=== PATIENT | female | born 1990 | race Caucasian/White ===

== ENCOUNTER 2019-05-14 14:12 | Emergency (ER) | payer OTHER, SELFPAY ==
--- NOTE | 2019-05-14 14:25 | ED.GENADULT ---
HPI - General Adult General Chief complaint: Upper Respiratory Infection Stated complaint: FEVER/COUGH/CHEST PAIN/SORE THROAT Time Seen by Provider: 05/14/19 14:39 Source: patient Mode of arrival: ambulatory Limitations: no limitations History of Present Illness HPI narrative: 29-year-old female patient presents to the [facility] with complaints of cold symptoms that started this morning. Patient states she was running low-grade fevers as high as 99. Patient states she just had some mild body aches, congestion and runny nose. Patient denies getting a flu shot. Patient denies any or breast-feeding at this time. Patient states that her daughter was diagnosed with influenza B a couple weeks ago. Patient states that she has taken some ibuprofen for her symptoms. Related Data Allergies Allergy/AdvReac Type Severity Reaction Status Date / Time No Known Allergies Allergy Unverified 10/02/18 10:38 Review of Systems Review of Systems: Narrative: CONSTITUTIONAL: Positive subjective low-grade fever, body aches, chills, denies sweats. EYES: Denies visual changes, redness, or discharge. ENT: Positive rhinorrhea, congestion, positive sore throat, denies otalgia. CARDIOVASCULAR: Denies chest pain, palpitations, or edema. RESPIRATORY: Denies cough or dyspnea. GASTROINTESTINAL: Denies abdominal pain, nausea, vomiting, or diarrhea. GENITOURINARY: Denies dysuria or hematuria. SKIN: Denies rash or itching. MUSCULOSKELETAL: Denies back pain, joint pain, or myalgia. NEUROLOGIC: Positive headache, denies numbness, or weakness. PSYCHIATRIC: Denies anxiety or depression. PMFSH Comments At the time of my signature I agree with nursing past medical history, surgical, social, and family history. There is no relevant family history pertinent to the presenting complaint. Exam Narrative: Exam Narrative: GENERAL: Well-appearing, well-nourished, and in no acute distress. HEAD: Normocephalic, atraumatic. No tenderness noted to frontal and maxillary sinuses on palpation EYES: PERRLA and EOMI. ENT: Nares with erythema and edema noted bilaterally, no rhinorrhea or epistaxis. Mucous membranes moist. Posterior pharynx with no erythema, tonsillar margin, exudates or lesions present. Bilateral TMs are clear with no erythema or foreign bodies in the canal. NECK: Supple. No lymphadenopathy CHEST: Clear to auscultation. No respiratory distress. HEART: Regular rate and rhythm. No murmur heard. Normal peripheral pulses. ABDOMEN: Soft, nontender, nondistended, normal active bowel sounds. EXTREMITIES: Normal range of motion. No edema. SKIN: Warm, dry, no rash. NEURO: No focal deficits. Alert and oriented x3. Course Vital Signs Vital signs: Vital Signs Temperature 36.9 C 05/14/19 14:26 Pulse Rate 90 05/14/19 14: Respiratory Rate 16 05/14/19 14: Blood Pressure 101/72 05/14/19 14:26 Pulse Oximetry 100 05/14/19 14:26 Temperature 36.9 C 05/14/19 14: Pulse Rate 90 05/14/19 14:26 Respiratory Rate 16 05/14/19 14: Blood Pressure 101/72 05/14/19 14:26 Pulse Oximetry 100 05/14/19 14:26 Vital signs reviewed. Medical Decision Making Differential Diagnosis Differential Diagnosis: Differential diagnosis: Allergic rhinitis, chronic sinusitis, tonsillitis, acute sinusitis, infectious mononucleosis, seasonal influenza, pertussis, diphtheria, meningococcal disease, viral syndrome, viral bronchitis, RSV. Notify patient that she is negative today for influenza and strep. Discussed with her this is probably some type of virus and I would continue to encourage her to take Tylenol, ibuprofen, warm salt water gargles, hot tea and honey and a humidifier in her room at night for symptomatic relief. Discussed with patient I will write her off of work tomorrow and she can go back to work when she has been fever free for 24 hours. Patient verbalized understanding denies any other questions or concerns at this time. Vital Signs
[2019-05-14 14:26] VITALS: BP 101/72; PULSE 90; RESP 16; TEMP 36.9; O2SAT 100
== END 2019-05-14 14:53 | disposition home or self-care (01) ==
PROVIDERS: Emergency Provider Nurse Practitioner Family
DX: J06.9 Acute upper respiratory infection, unspecified (principal)
CPT/HCPCS: 87081; 87804; 87880; 99213; G0463

== ENCOUNTER 2020-01-24 11:36 | Emergency (ER) | payer BC, OTHER, SELFPAY ==
--- NOTE | 2020-01-24 11:38 | ED.GENADULT ---
HPI - General Adult General Chief complaint: Upper Respiratory Infection Stated complaint: SORE THROAT Time Seen by Provider: 01/24/20 11:38 Source: patient Mode of arrival: ambulatory Limitations: no limitations History of Present Illness HPI narrative: 29-year-old female patient presents to the [facility] with complaints of a sore throat that started yesterday. Patient states she has also had a little bit of discomfort to the right ear. Patient denies any fevers, body aches or chills. Denies any runny nose, stuffy nose, sneezing or coughing. Patient denies any chronic issues with strep throat thinks that she might of had but maybe once other time when she was younger. Patient states that she has been doing warm salt water gargles for treatment but denies taking any medications for her symptoms Related Data Allergies Allergy/AdvReac Type Severity Reaction Status Date / Time No Known Allergies Allergy Unverified 01/24/20 11:51 Review of Systems Review of Systems: Narrative: CONSTITUTIONAL: Denies fever, chills, or sweats. EYES: Denies visual changes, redness, or discharge. ENT: Denies rhinorrhea, congestion, positive sore throat, positive right otalgia. CARDIOVASCULAR: Denies chest pain, palpitations, or edema. RESPIRATORY: Denies cough or dyspnea. GASTROINTESTINAL: Denies abdominal pain, nausea, vomiting, or diarrhea. GENITOURINARY: Denies dysuria or hematuria. SKIN: Denies rash or itching. MUSCULOSKELETAL: Denies back pain, joint pain, or myalgia. NEUROLOGIC: Denies headache, numbness, or weakness. PSYCHIATRIC: Denies anxiety or depression. PMFSH Past Medical History Medical History (Updated 01/24/20 @ 12:08 by MADHU Ferrer) Anxiety Endometriosis Surgical History Surgical History (Updated 01/24/20 @ 11:39 by MADHU Ferrer) History of appendectomy History of ear surgery X2 Comments At the time of my signature I agree with nursing past medical history, surgical, social, and family history. There is no relevant family history pertinent to the presenting complaint. Exam Narrative: Exam Narrative: GENERAL: Well-appearing, well-nourished, and in no acute distress. HEAD: Normocephalic, atraumatic. No tenderness noted to frontal and maxillary sinuses on palpation EYES: PERRLA and EOMI. ENT: Nares clear, no rhinorrhea or epistaxis. Mucous membranes moist. Posterior pharynx with 1+ tonsil enlargement with some exudates noted to the right side. The TM on the right side does appear slightly pink little bit of fluid noted behind there. NECK: Supple. No lymphadenopathy CHEST: Clear to auscultation. No respiratory distress. Patient able talk in clear complete sentences. HEART: Regular rate and rhythm. No murmur heard. Normal peripheral pulses. ABDOMEN: Soft, nontender, nondistended, normal active bowel sounds. EXTREMITIES: Normal range of motion. No edema. SKIN: Warm, dry, no rash. NEURO: No focal deficits. Alert and oriented x3. Course Reevaluation(s) Reevaluation #1: Reevaluated patient after her strep test is resulted. Discussed with her that her strep test is positive today. Discussed with patient we will discharge her home with some antibiotics discussed with her that she is considered contagious for the first 24 to 48 hours after that she should be okay to return to normal activities. Discussed with her she can continue the warm salt water gargles, Tylenol, ibuprofen for any pain. Patient verbalized understanding denies any other questions or concerns at this time. Date: 01/24/20 Time: 12:11 Vital Signs Vital signs: Vital Signs Temperature 36.7 C 01/24/20 11:51 Pulse Rate 67 01/24/20 11:51 Respiratory Rate 16 01/24/20 11:51 Blood Pressure 97/60 L 01/24/20 11:51 Pulse Oximetry 98 01/24/20 11:51 Temperature 36.7 C 01/24/20 11:51 Pulse Rate 67 01/24/20 11:51 Respiratory Rate 16 01/24/20 11:51 Blood Pressure 97/60 L 01/24/20 11:51 Pulse Oximetry 98 01/24/20
[2020-01-24 11:51] VITALS: BP 97/60; PULSE 67; RESP 16; TEMP 36.7; O2SAT 98
== END 2020-01-24 12:18 | disposition home or self-care (01) ==
PROVIDERS: Emergency Provider Nurse Practitioner Family
DX: J02.0 Streptococcal pharyngitis (principal); N80.9 Endometriosis, unspecified
CPT/HCPCS: 87880; 99213; G0463

== ENCOUNTER 2020-01-29 06:54 | Outpatient (NON) | payer BC, OTHER, SELFPAY ==
[2020-01-29 15:10] LABS: Influenza Control Positive
== END 2020-01-29 06:55 ==
LOC: ANHCOVIDDT 07:10
PROVIDERS: Visit Provider Nurse Practitioner
DX: R53.83 Other fatigue (principal); R05 Cough
CPT/HCPCS: 87804

== ENCOUNTER 2020-01-29 11:25 | Outpatient (NON) | payer BC, OTHER, SELFPAY ==
[2020-01-30 14:52] LABS: SARS-CoV-2 RNA PCR Negative
== END 2020-01-29 11:26 ==
LOC: ANHCOVIDDT 11:28
PROVIDERS: Visit Provider Nurse Practitioner
DX: R05 Cough (principal); R53.83 Other fatigue; Z20.828 Contact with and (suspected) exposure to other viral communicable diseases
CPT/HCPCS: 87635; C9803; U0003

== ENCOUNTER 2020-11-11 15:52 | Emergency (ER) | payer BC, OTHER, SELFPAY ==
--- NOTE | ~2020-11-11 | US_ITS ---
US OB <=14 wk fetus w TV DATE: 11/11/2020 17:01 INDICATION: Vaginal bleeding and cramping TECHNIQUE: Real-time imaging and Doppler analysis via transabdominal and transvaginal approaches COMPARISON: None FINDINGS: Uterus is retroverted. The uterus measures 8.8 cm height, 5.8 cm anteroposterior and 5.9 cm transverse dimension. There is an intrauterine gestational sac. Wooster-rump length measurement is 4.2 mm, consistent with 6 weeks 1 day +/- 4 days estimated gestation al age with JOSSE of 07/06/2021, compared to 06/28/2021 by LMP. No heart motion is detected. demise is a strong likelihood. There is a small sonolucency subjacent to the gestational sac consistent with mild subchorionic hemor rhage. 12 x 15.5 mm right ovarian cyst. Left ovarian probable 15 x 18 mm complicated cyst. IMPRESSION: Probable demise; recommend short-term follow-up imaging for confirmation Reviewed, dictated and finalized at [facility]. Reviewed, dictated and finalized at [facility]. IMPRESSION: Probable demise; recommend short-term follow-up imaging for c onfirmation
[2020-11-11 15:56] VITALS: BP 116/66; PULSE 86; RESP 17; TEMP 36.7; O2SAT 100
[2020-11-11 16:08] VITALS: BP 106/75; PULSE 77; RESP 18; TEMP 36.9; O2SAT 99
[2020-11-11 16:09] LABS: Basophils Percent Auto 0.4 % (0.2-1.2); Eosinophils Absolute Auto 0.2 K/mm3 (0-0.3); Eosinophils Percent Auto 1.6 % (0-4.4); Hematocrit 39.1 % (37.0-47.0); Hemoglobin 13.3 g/dL (12.0-15.0); Immature Granulocyte Absolute 0.02 K/mm3 (0.00-0.031); Immature Granulocyte Percent A 0.2 % (0-0.5); Lymphocytes Absolute Auto 2.51 K/mm3 (0.9-3.2); Lymphocytes Percent Auto 24.3 % (18.3-44.2); Mean Corpuscular Hemoglobin 31.4 pg (26-34); Mean Corpuscular Volume 92.4 fl (80-100); Mean Platelet Volume 9.8 fl (7.4-10.4); Monocytes Absolute Auto 0.5 K/mm3 (0.1-0.6); Monocytes Percent Auto 5.1 % (2.6-8.5); Neutrophils Absolute Auto 7.1 K/mm3 (1.3-6.7); Neutrophils Percent Auto 68.4 % (45.5-73.1); Platelet Count Result 199 k/mm3 (150-375); Red Blood Count 4.23 M/mm3 (4.2-5.4); Red Cell Distribution Width 11.6 % (11.5-14.5); White Blood Count 10.3 K/mm3 (4.5-10.0)
[2020-11-11 16:35] VITALS: BP 95/62; PULSE 76; RESP 18; O2SAT 100
--- NOTE | 2020-11-11 16:36 | ED.PREGNANCY ---
HPI - General Chief complaint: BURNER SHAFT Stated complaint: vaginal bleeding, 8 wks Time Seen by Provider: 11/11/20 16:20 History of Present Illness HPI Narrative: 30 yo female at approximately 8 weeks gestation presents to the Ed c/o vaginal bleeding. She reports light vaginal bleeding since 1530 this afternoon. This is associated with moderate cramping. No nausea, vo mitng, hematuria, dysuria. She has not seen and OB or had an US yet this . She plans to go to [facility] [place]. Related Data Home Medications Medication Instructions Recorded Confirmed [id number] tablet PO 11/11/20 [] Allergies Allergy/AdvReac Type Severity Reaction Status Date / Time No Known Allergies Allergy Verified 11/11/20 16:05 Review of Systems Review of Systems: All systems reviewed & are unremarkable except as noted in HPI and below Constitutional: Constitutional: Denies chills and Denies fever(s) Cardiovascular: Cardiovascular: Denies chest pain Respiratory: Respiratory: Denies dyspnea Gastrointestinal: Gastrointestinal: Denies nausea and Denies vomiting Genitourinary: Genitourinary: Denies hematuria and Denies dysuria Neurologic: Reports system reviewed and no additional complaints, except as documented PMFSH Past Medical History Medical History Anxiety Endometriosis Surgical History Surgical History History of appendectomy History of ear surgery X2 Social History Social History Smoking packs per day: 1 Smoking cigarettes per day: 20.0 Years smoked: 8 Smoking pack-years: 8.00 Smoking status: Former smoker Exam Const: General: healthy appearing, no acute distress and alert Orientation/consciousness: patient oriented x3 HENMT: Head: normal to inspection Neck: Neck: normal visual inspection Resp: Effort & Inspection: normal respiratory effort Auscultation: clear to auscultation bilaterally, no rales, no rhonchi and no wheezes Cardio: Jugular venous distension: no JVD Rate: regular rate Rhythm: regular rhythm Heart sounds: no murmurs GI: Inspection: non-distended GI Palp: Yes Soft to palpation and No Tenderness to palpation present (GI) Skin: General skin exam: normal color Neuro: General: patient oriented x3 and moves all extremities Speech: normal speech Extrem: General: normal to inspection and no edema Psych: Appearance: well kempt Affect: normal affect Course Vital Signs Vital signs: Vital Signs Temperature 36.7 C 11/11/20 15:56 Pulse Rate 86 11/11/20 15:56 Respiratory Rate 17 11/11/20 15:56 Blood Pressure 116/66 11/11/20 15:56 Pulse Oximetry 100 11/11/20 15:56 Temperature 36.9 C 11/11/20 16:08 Pulse Rate 91 11/11/20 18:07 Respiratory Rate 18 11/11/20 18:07 Blood Pressure 118/87 11/11/20 18:07 Pulse Oximetry 99 11/11/20 18:07 Procedures Other Procedure Procedure 1: Other Procedure: Bedside Ultrasound Cystic structure in right ovary. Endometrial thickening. No Clear IUP or ectopic. MDM - OB/Uterine Contractions MDM Narrative Medical decision making narrative: Dr. Ward aware. They will see her in follow up Medical Records Attestation: I reviewed the patient's medical records. Lab Data Attestation: I reviewed the patient's lab results. Result diagrams: 11/11/20 16:02 Labs: Lab Results 11/11/20 11/11/20 11/11/20 Range/Units 16:02 16:02 16:02 WBC 10.3 H (4.5-10.0) K/mm3 RBC 4.23 (4.2-5.4) M/mm3 Hgb 13.3 (12.0-15.0) g/dL Hct 39.1 (37.0-47.0) % MCV 92.4 (80-100) fl MCH 31.4 (26-34) pg MCHC 34.0 (32-36) g/dl RDW 11.6 (11.5-14.5) % Plt Count 199 (150-375) k/mm3 MPV 9.8 (7.4-10.4) fl Immature Gran % (Auto) 0.2 (0-
[2020-11-11 18:07] VITALS: BP 118/87; PULSE 91; RESP 18; O2SAT 99
== END 2020-11-11 18:15 | disposition home or self-care (01) ==
PROVIDERS: Emergency Provider Emergency Medicine
DX: O03.4 Incomplete spontaneous abortion without complication (principal); N80.9 Endometriosis, unspecified; Z87.891 Personal history of nicotine dependence; N83.201 Unspecified ovarian cyst, right side; R93.89 Abnormal findings on diagnostic imaging of other specified body structures
CPT/HCPCS: 36415; 76801; 76817; 84702; 85025; 85461; 99284

== ENCOUNTER 2021-07-11 16:19 | Observation (INO) | payer BC, MEDICAID, SELFPAY ==
[2021-07-11 13:45] VITALS: BP 99/70; PULSE 125; RESP 18; TEMP 36.6; O2SAT 100
[2021-07-11 14:16] LABS: Basophils Percent Auto 0.3 % (0.2-1.2); Eosinophils Percent Auto 0.5 % (0-4.4); Hematocrit 45.5 % (37.0-47.0); Hemoglobin 15.9 g/dL (12.0-15.0); Immature Granulocyte Absolute 0.02 K/mm3 (0.00-0.031); Immature Granulocyte Percent A 0.3 % (0-0.5); Lymphocytes Absolute Auto 2.09 K/mm3 (0.9-3.2); Lymphocytes Percent Auto 28.4 % (18.3-44.2); Mean Corpuscular HGB Conc 34.9 g/dl (32-36); Mean Corpuscular Hemoglobin 31.6 pg (26-34); Mean Corpuscular Volume 90.5 fl (80-100); Mean Platelet Volume 10.1 fl (7.4-10.4); Monocytes Absolute Auto 0.7 K/mm3 (0.1-0.6); Monocytes Percent Auto 9.1 % (2.6-8.5); Neutrophils Absolute Auto 4.5 K/mm3 (1.3-6.7); Neutrophils Percent Auto 61.4 % (45.5-73.1); Platelet Count Result 207 k/mm3 (150-375); Red Blood Count 5.03 M/mm3 (4.2-5.4); Red Cell Distribution Width 11.9 % (11.5-14.5); White Blood Count 7.4 K/mm3 (4.5-10.0)
[2021-07-11 14:25] LABS: Alanine Aminotransferase 23 U/L (4-35); Albumin Level 4.8 g/dL (3.5-5.1); Alkaline Phosphatase 54 U/L (38-126); Anion Gap 10 mmol/L (8-16); Aspartate Amino Transferase 27 U/L (14-36); Bilirubin,Total 1.1 mg/dL (0.2-1.3); Blood Urea Nitrogen 12 mg/dL (7-17); Calcium 9.1 mg/dL (8.4-10.2); Carbon Dioxide 24 mmol/L (22-30); Chloride 101 mmol/L (98-107); Estimated CRCL calculation 108 ml/min; Estimated Glomerular Filt Rate > 60; Glucose 89 mg/dL (65-110); Lipase 107 U/L (23-300); Potassium 3.6 mmol/L (3.4-5.0); Sodium 135 mmol/L (137-145)
--- NOTE | 2021-07-11 16:00 | PC.NURSE ---
Patient's name called multiple times in waiting room to be taken to room, no answer.
[2021-07-11] MEDS: DEXTROSE 5%/0.45% SOD CHL 1,000 ML 999 ML IV CONT (17:05)
[2021-07-11] MEDS: ONDANSETRON INJ 4 MG/2 ML VIAL IV PUSH (17:05)
[2021-07-11 17:11] VITALS: BP 92/64; PULSE 72; RESP 20; TEMP 37.6; BMI 18.5
--- NOTE | 2021-07-11 17:11 | OBADM ---
This patient, Monique Gunter, admitted to the OB room OB Post 113 for observation. Patient/family oriented to hospital policies and general routines including ID bracelet, bed and alarms, visiting hours, pain management, procedures, bathroom and other care routines, personal items, smoking policy, room service/diet, and visiting hours. Patient/Family are encouraged to report perceived risks to care and to ask questions if they do not understand what they are told or what they should do.
[2021-07-11] MEDS: FAMOTIDINE 20 MG/2 ML VIAL IV PUSH (17:15)
[2021-07-11] MEDS: LACTATED RINGERS 1,000 ML 999 ML IV CONT (18:14)
[2021-07-11] MEDS: PROMETHAZINE HCL 25 MG/ML AMPUL 12.5 MG IV PUSH (19:44)
[2021-07-11] MEDS: DEXTROSE 5%/LACTATED RINGERS 1,000 ML 200 ML IV CONT (19:44)
[2021-07-11 20:00] VITALS: BP 98/50; PULSE 80; RESP 18; TEMP 36.7
[2021-07-11 20:11] LABS: Add Urine Microscopic? YES; Appearance Urine Cloudy (Clear); Bacteria Urine Trace /hpf; Bilirubin Urine Negative (Negative); Color Urine Yellow (Yellow); Glucose Urine UA 3+ mg/dL (Negative); Ketones Urine 2+ mg/dL (Negative); Leukocyte Esterase Ur Trace LEU/UL (Negative); Mucus Urine Heavy /lpf; Nitrate Urine Negative (Negative); Protein Urine 1+ mg/dL (Negative); Squamous Epithelial Cell Urine Many /hpf (Few); Urobilinogen Urine Negative mg/dL (<2.0)
[2021-07-11 20:26] LABS: Blood Urine Negative (Negative); Specific Grav Ur 1.032 (1.001-1.035)
[2021-07-11] MEDS: BELLADONNA ALK/PHENOB ELIX 10 ML, MAG HYDROX/ALUMINUM HYD/SIMETH 30 ML, LIDOCAINE HCL 2... PO (22:04)
[2021-07-12] MEDS: DEXTROSE 5%/LACTATED RINGERS 1,000 ML 200 ML IV CONT ×2 (00:49→06:12)
[2021-07-12] MEDS: ONDANSETRON INJ 4 MG/2 ML VIAL IV PUSH ×2 (03:21→10:02)
[2021-07-12] MEDS: MAG HYDROX/AL HYDROX/SIMETH 30 ML UDC PO ×2 (03:30→09:22)
[2021-07-12 05:56] VITALS: BP 84/47; PULSE 67
[2021-07-12] MEDS: PROMETHAZINE HCL 25 MG/ML AMPUL 12.5 MG IV PUSH ×2 (06:12→13:05)
[2021-07-12 06:58] VITALS: BP 68/37; PULSE 68
[2021-07-12 07:00] VITALS: BP 88/49; PULSE 64; RESP 16; TEMP 37
--- NOTE | 2021-07-12 07:00 | PC.NURSE ---
Brought pt ice chips, apple sauce and saltines. Pt declines trying any at this time.
--- NOTE | 2021-07-12 07:30 | PC.NURSE ---
Dr. Dillard in to see pt and plan for discharge. Encouraged pt to try some of her ice chips.
--- NOTE | 2021-07-12 07:39 | PM.IMHP ---
H&P: HPI History of Present Illness Date/Time: 07/12/21 07:39 Chief Complaint: nv Narrative: Monique is a 31yo at 7w6d admitted last night for hyperemesis. Received over 3L fluid, zofran, phenergan, pepcid. This am feeling much better. Tolerating sips. Had pretty severe hyperemesis last . Review of Systems Review of Systems: All systems reviewed & are unremarkable except as noted in HPI and below [facility] Past Medical History Medical History Anxiety Endometriosis Surgical History Surgical History History of appendectomy History of ear surgery X2 Social History Social History Smoking packs per day: 1 Smoking cigarettes per day: 20.0 Years smoked: 8 Smoking pack-years: 8.00 Smoking status: Never smoker Spiritual care concerns: No Meds Home Medications and Allergies Home Medications Medication Instructions Recorded Confirmed Type promethazine 12.5 mg PO Q4H PRN 07/11/21 07/11/21 History Allergies Allergy/AdvReac Type Severity Reaction Status Date / Time No Known Allergies Allergy Verified 11/18/20 10:54 Vital Signs Vital Signs - 24 hr 07/11/21 13:45 07/11/21 17:11 07/11/21 20:00 Temperature 97.8 F 99.7 F H 98.0 F Pulse Rate 125 H 72 80 Respiratory Rate 18 20 18 Blood Pressure 99/70 L 92/64 L 98/50 L Pulse Oximetry 100 07/12/21 05:56 07/12/21 06:58 07/12/21 07:00 Temperature 98.6 F Pulse Rate 67 68 64 Respiratory Rate 16 Blood Pressure 84/47 L 68/37 L 88/49 L Pulse Oximetry Exam Const: General: no acute distress Resp: Effort & Inspection: normal respiratory effort Auscultation: clear to auscultation bilaterally Cardio: Rate: regular rate Rhythm: regular rhythm GI: GI Palp: Yes Soft to palpation Extrem: General: normal to inspection H&P: Results Labs Labs: Short CBC 07/11/21 Range/Units 14:06 WBC 7.4 (4.5-10.0) K/mm3 Hgb 15.9 H (12.0-15.0) g/dL Hct 45.5 (37.0-47.0) % Plt Count 207 (150-375) k/mm3 BMP 07/11/21 14:06 Sodium 135 L Potassium 3.6 Chloride 101 Carbon Dioxide 24 BUN 12 Creatinine 0.60 L Glucose 89 Calcium 9.1 Liver Function 07/11/21 Range/Units 14:06 Total Bilirubin 1.1 (0.2-1.3) mg/dL AST 27 (14-36) U/L ALT 23 (4-35) U/L Alkaline Phosphatase 54 (38-126) U/L Albumin 4.8 (3.5-5.1) g/dL Urine 07/11/21 Range/Units 19:53 Urine Color Yellow (Yellow) Urine Appearance Cloudy H (Clear) Urine pH 6.0 (5.0-9.0) Ur Specific Friedens 1.032 (1.001-1.035) Urine Protein 1+ H (Negative) mg/dL Urine Glucose (UA) 3+ H (Negative) mg/dL Assessment and Plan Assessment and plan (1) Hyperemesis affecting , antepartum: Code(s): O21.0 - Mild hyperemesis gravidarum Status: Acute Additional Plan DC home this am when tolerating small bites and sips home with phenergan suppositories and zofran FU next week for NOB
--- NOTE | 2021-07-12 08:30 | PC.NURSE ---
Pt has had 5 small bites of applesauce and some ice chips.
[2021-07-12] MEDS: FAMOTIDINE 20 MG/2 ML VIAL IV PUSH (09:54)
--- NOTE | 2021-07-12 11:26 | PC.NURSE ---
Dr. Dillard updated on pt's intake this morning- most of a cup of ice, 1/2 of an applesauce, tried some toast but it came back up. Informed MD that pt c/o stomach pain like a spasm as her nausea increases. Informed MD I have given her Pepcid and Maalox this morning.
--- NOTE | 2021-07-12 11:29 | PC.NURSE ---
Dr. Dillard called back with order for GI cocktail and states it is OK to discharge pt to home.
[2021-07-12] MEDS: BELLADONNA ALK/PHENOB ELIX 10 ML, MAG HYDROX/ALUMINUM HYD/SIMETH 30 ML, LIDOCAINE HCL 2... PO (11:41)
[2021-07-12 12:20] VITALS: BP 109/47; PULSE 64; RESP 16; TEMP 37.4
[2021-07-12 12:21] VITALS: BP 109/47; PULSE 64
--- NOTE | 2021-07-12 13:32 | PC.NURSE ---
Dr. Dillard informed of pt's and her mother's concern about pt being discharged. Afraid she will just be right back in. They keep talking about how this is starting out just how she did last and the pt had to be admitted for a week. Discussed with pt that she has to try to be optimistic that these meds will work. has an appointment available this Sunday at 9:15 am and she will have the office call her to put her in that appointment , but to discharge pt to home.
== END 2021-07-12 13:42 | disposition home or self-care (01) ==
PROVIDERS: Emergency Medicine; Admitting Provider Obstetrics & Gynecology; Visit Provider Obstetrics & Gynecology
DX: O21.0 Mild hyperemesis gravidarum (principal); Z3A.01 Less than 8 weeks gestation of pregnancy
CPT/HCPCS: 36415; 80053; 81001; 83690; 85025; 87086; 96361; 96374; 96375; 96376; A9270; G0378; G0379; J2405; J2550; J7120; J7121

== ENCOUNTER 2021-07-16 17:50 | Inpatient (IN) | payer BC, MEDICAID, SELFPAY ==
[2021-07-16] MEDS: DEXTROSE 5%/LACTATED RINGERS 1,000 ML 999 ML IV CONT (18:58)
[2021-07-16 19:00] LABS: Hematocrit 42.6 % (37.0-47.0); Hemoglobin 15.1 g/dL (12.0-15.0); Mean Corpuscular HGB Conc 35.4 g/dl (32-36); Mean Corpuscular Hemoglobin 31.3 pg (26-34); Mean Corpuscular Volume 88.2 fl (80-100); Mean Platelet Volume 10.4 fl (7.4-10.4); Platelet Count Result 172 k/mm3 (150-375); Red Blood Count 4.83 M/mm3 (4.2-5.4); Red Cell Distribution Width 11.7 % (11.5-14.5); White Blood Count 8.3 K/mm3 (4.5-10.0)
[2021-07-16] MEDS: ONDANSETRON INJ 4 MG/2 ML VIAL IV PUSH (19:00)
[2021-07-16] MEDS: PROMETHAZINE HCL 25 MG/ML AMPUL 12.5 MG IV PUSH (19:02)
[2021-07-16 19:10] LABS: Alanine Aminotransferase 16 U/L (4-35); Albumin Level 3.9 g/dL (3.5-5.1); Alkaline Phosphatase 68 U/L (38-126); Anion Gap 8 mmol/L (8-16); Aspartate Amino Transferase 20 U/L (14-36); Blood Urea Nitrogen 9 mg/dL (7-17); Calcium 8.5 mg/dL (8.4-10.2); Carbon Dioxide 24 mmol/L (22-30); Chloride 102 mmol/L (98-107); Estimated Glomerular Filt Rate > 60; Glucose 78 mg/dL (65-110); Potassium 3.4 mmol/L (3.4-5.0); Sodium 134 mmol/L (137-145)
[2021-07-16 19:21] VITALS: BP 103/58; PULSE 77; PULSE 78; O2SAT 100
[2021-07-16 19:30] VITALS: BP 99/61; PULSE 81
[2021-07-16] MEDS: SCOPOLAMINE 1.5 MG PATCH TRANSDERM (19:40)
[2021-07-16 19:45] VITALS: BP 93/58; PULSE 76
[2021-07-16 20:00] VITALS: BP 92/56; PULSE 74
[2021-07-16 22:00] VITALS: RESP 16; TEMP 37.1
--- NOTE | 2021-07-16 22:26 | OBADM ---
This patient, Monique Gunter, admitted to the OB room OB Post 115 for observation. Patient/family oriented to hospital policies and general routines including ID bracelet, bed and alarms, visiting hours, pain management, procedures, bathroom and other care routines, personal items, smoking policy, room service/diet, and visiting hours. Patient/Family are encouraged to report perceived risks to care and to ask questions if they do not understand what they are told or what they should do.
[2021-07-16] MEDS: DEXTROSE 5%/LACTATED RINGERS 1,000 ML 100 ML IV CONT (23:40)
[2021-07-17] VITALS (7 sets, daily range): BP systolic 86–104; BP diastolic 48–62; PULSE 65–75; RESP 18; TEMP 37.3; BMI 18.5
[2021-07-17] MEDS: BELLADONNA ALK/PHENOB ELIX 10 ML, MAG HYDROX/ALUMINUM HYD/SIMETH 30 ML, LIDOCAINE HCL 2... PO (00:12)
--- NOTE | 2021-07-17 00:21 | PC.NURSE ---
GI cocktail given per patient request. Patient states that she was unable to keep it down. RN to give additional nausea medication.
[2021-07-17] MEDS: PROMETHAZINE HCL 25 MG/ML AMPUL 12.5 MG IV PUSH ×4 (00:28→17:50)
[2021-07-17] MEDS: ONDANSETRON INJ 4 MG/2 ML VIAL IV PUSH ×4 (01:33→22:03)
[2021-07-17] MEDS: DEXTROSE 5%/LACTATED RINGERS 1,000 ML 100 ML IV CONT (07:48)
[2021-07-17] MEDS: FAMOTIDINE 20 MG/2 ML VIAL IV PUSH (12:03)
[2021-07-17] MEDS: SODIUM CHLORIDE 0.9% IV 1,000 ML 999 ML IV CONT (14:20)
[2021-07-17] MEDS: THIAMINE HCL INJ 100 MG, FOLIC ACID INJ 1 MG, MULTIVITAMINS-12 INJ VIAL 1 5 ML, MULTIVI... 75 MG IV CONT (16:42)
--- NOTE | 2021-07-17 17:21 | PC.NURSE ---
Pt ordered oatmeal today and was unable to eat it. She has not vomited at this point for this shift. Encouraged fluids more importantly than fluid.
--- NOTE | 2021-07-17 20:30 | PC.NURSE ---
Patient rates headache a 4 on pain scale but has not taken medications for it. Patient states that she has mild Rupper quad pain, no nausea or vomiting, patient no longer has gallbladder. No tenderness noted on palpation. Patient has a history of PP pre-E was on mag after last delivery.
[2021-07-17] MEDS: MAG HYDROX/AL HYDROX/SIMETH 30 ML UDC PO (20:54)
[2021-07-18] VITALS (7 sets, daily range): BP systolic 73–102; BP diastolic 38–55; PULSE 60–74; RESP 14; TEMP 36.8–37.3
[2021-07-18] MEDS: PROMETHAZINE HCL 25 MG/ML AMPUL 12.5 MG IV PUSH ×5 (00:02→21:36)
[2021-07-18] MEDS: FAMOTIDINE 20 MG/2 ML VIAL IV PUSH ×3 (00:03→23:32)
[2021-07-18] MEDS: DEXTROSE 5%/LACTATED RINGERS 1,000 ML 100 ML IV CONT ×2 (02:15→15:47)
[2021-07-18] MEDS: ONDANSETRON INJ 4 MG/2 ML VIAL IV PUSH ×4 (03:58→23:32)
--- NOTE | 2021-07-18 08:12 | PM.IMHP ---
H&P: [facility] History of Present Illness Date/Time: 07/18/21 08:12 This patient is a 31-year-old Multiparous female at 8 weeks gestation with hyperemesis. she has a history of hyperemesis. She was severely dehydrated upon admission. She is keeping nothing down including liquids. She has no vaginal bleeding or cramping. She has no chest pain shortness of breath. She has no fevers or chills. Chief Complaint: Nausea vomiting Review of Systems Review of Systems: All systems reviewed & are unremarkable except as noted in HPI and below Constitutional: Constitutional: Denies chills, Denies fatigue, Denies fever(s) and Denies weakness Eyes: Eyes: Denies blurry vision, Denies change in vision, Denies loss of peripheral vision, Denies loss of vision, Denies other visual disturbances and Denies eye pain ENT: Denies vertigo, Denies dizziness, Denies hearing loss, Denies mouth pain, Denies nasal obstruction, Denies neck mass and Denies neck pain Cardiovascular: Cardiovascular: Denies chest pain, Denies diaphoresis, Denies syncope, Denies leg edema and Denies dyspnea Respiratory: Respiratory: Denies chest congestion, Denies cough, Denies hemoptysis, Denies dyspnea and Denies wheezing Gastrointestinal: Gastrointestinal: Denies abdominal pain, Denies constipation, Denies diarrhea, Denies nausea and Denies vomiting Genitourinary: Genitourinary: Denies hematuria, Denies change in libido, Denies nocturia, Denies genital lesions, Denies flank pain and Denies urinary urgency Musculoskeletal: Musculoskeletal: Denies abnormal gait, Denies back pain, Denies myalgias, Denies arthralgias, Denies joint swelling, Denies muscle weakness and Denies neck pain Integumentary/Breasts: Skin/Breast: Denies swelling, Denies breast pain, Denies breast mass, Denies dry skin, Denies nipple discharge, Denies unusual bruising and Denies jaundice Neurologic: Denies Neuro-related abnormal movements, Denies Abnormal speech present, Denies abnormal gait, Denies behavioral changes, Denies confusion, Denies vertigo, Denies dizziness, Denies syncope, Denies loss of vision, Denies memory loss, Denies convulsions and Denies weakness Psychiatric: Psychiatric: Denies abnormal sleep pattern, Denies behavioral changes, Denies change in libido, Denies confusion, Denies depression, Denies anhedonia and Denies memory loss Endocrine: Endocrine: Reports no additional endocrine complaints, Denies change in libido and Denies fatigue Hematologic/Lymphatic: Hematologic/Lymphatic: Reports no additional hematologic/lymphatic complaints Allergic/Immunologic: Allergic/Immunologic: Reports no additional allergic/immunologic complaints and Denies wheezing PMFSH Past Medical History Medical History Anxiety Endometriosis Surgical History Surgical History History of appendectomy History of ear surgery X2 Social History Social History Smoking packs per day: 1 Smoking cigarettes per day: 20.0 Years smoked: 8 Smoking pack-years: 8.00 Smoking status: Never smoker Spiritual care concerns: No Meds Home Medications and Allergies Home Medications Medication Instructions Recorded Confirmed Type ondansetron 4 mg PO Q8H #30 tablet 07/12/21 07/17/21 Rx promethazine 25 mg RECTAL Q6H PRN #36 ea 07/12/21 07/17/21 Rx Allergies Allergy/AdvReac Type Severity Reaction Status Date / Time No Known Allergies Allergy Verified 11/18/20 10:54 Vital Signs Vital Signs - 24 hr 07/17/21 10:11 07/17/21 10:17 07/17/21 16:10 Temperature 99.1 F Pulse Rate 65 72 Respiratory Rate Blood Pressure 86/48 L 94/52 L 07/17/21 16:12 07/17/21 18:25 07/17/21 18:26 Temperature 99.1 F 99.1 F Pulse Rate 75 Respiratory Rate 18 Blood Pressure 104/62 07/18/21 02:16 07/18/21 02:17 Temperature 99.2 F Pulse
--- NOTE | 2021-07-18 08:24 | PC.NURSE ---
0745--Dr Ward at bedside. Plan of care discussed.
--- NOTE | 2021-07-18 08:25 | PC.NURSE ---
0715--Pt sleeping comfortably.
--- NOTE | 2021-07-18 09:38 | PC.NURSE ---
0929--pt reports that she is feeling better and will order a tray for breakfast. Plan of care discussed.
[2021-07-18] MEDS: MAG HYDROX/AL HYDROX/SIMETH 30 ML UDC PO ×2 (10:09→20:27)
[2021-07-19] MEDS: DEXTROSE 5%/LACTATED RINGERS 1,000 ML 100 ML IV CONT ×2 (02:14→13:40)
[2021-07-19] MEDS: diphenhydrAMINE HCl INJ 50 MG/ML VIAL 25 MG IV PUSH (02:14)
[2021-07-19 06:21] VITALS: BP 91/56; PULSE 62
[2021-07-19] MEDS: PROMETHAZINE HCL 25 MG/ML AMPUL 12.5 MG IV PUSH ×4 (06:31→21:45)
[2021-07-19 07:10] VITALS: TEMP 36.2
--- NOTE | 2021-07-19 07:12 | PC.NURSE ---
0700--Pt reports feeling better. Discussed plan of care and consistency of medication administration.
[2021-07-19] MEDS: ONDANSETRON INJ 4 MG/2 ML VIAL IV PUSH ×3 (07:41→19:43)
--- NOTE | 2021-07-19 10:27 | P.PNOB_ITS ---
OB - PN: Subj Subjective Date/time seen: 07/19/21 10:27 Improved nausea vomiting today. Scheduled Phenergan, Zofran and scopolamine patch tolerating some p.o. fluids and ready to try some cereal. No fevers or ch ills. OB - PN: Obj Data Labs CBC & Chem 7: 07/16/21 18:49 07/16/21 18:49 OB - PN A/P Assessment and Plan (1) Hyperemesis affecting , antepartum: Code(s): O21.0 - Mild hyperemesis gravidarum Status: Acute Assessment and Plan: Improved status today with Scheduled Phenergan, Zofran scopolamine patches tolerating p.o., patient looks great, thinking about discharge. Time Spent With Patient Time: Total time spent is greater than 50% in coordination of care (as documented) at patient's floor/unit and/or counseling patient: Exam Const: General: comfortable, no acute distress and alert Resp: Effort & Inspection: normal respiratory effort Auscultation: no crackles, no rales and no rhonchi Cardio: Rate: regular rate Heart sounds: no click, no murmurs and no rubs GI: Inspection: non-distended GI Palp: No Tenderness to palpation present (GI) Auscultation: normal bowel sounds Other: Incision - CDI Extrem: General: normal to inspection, no pedal edema and no calf tenderness
[2021-07-19] MEDS: FAMOTIDINE 20 MG/2 ML VIAL IV PUSH (12:02)
[2021-07-19] MEDS: diphenhydrAMINE HCl INJ 50 MG/ML VIAL 12.5 MG IV PUSH ×2 (15:40→21:50)
--- NOTE | 2021-07-19 16:13 | PC.NURSE ---
0709--Discussed desire for Zofran pump with pt and mother. Will follow up with Dr. Ward's office.
--- NOTE | 2021-07-19 16:15 | PC.NURSE ---
1606--Joanna from Dr. Ward's office called to discuss Home Health placement and zofran pump/PICC line. Pt spoke with her via phone. Follow up will take place at 11:30 US appointment at office on Sun07/20/21.
[2021-07-19] MEDS: MAG HYDROX/AL HYDROX/SIMETH 30 ML UDC PO (20:13)
--- NOTE | 2021-07-19 21:41 | PC.NURSE ---
Called Dr. Dillard- pt requesting to d/c home. pt has appt at 4259 07/20/21. order received to d/c pt home with instructions to f/u at office visit in am.
--- NOTE | 2021-08-15 16:01 | PM.OBDSVD ---
DS: Admitting Diagnosis Discharge Date 07/19/21 Admitting Diagnosis Hyperemesis gravidarum DS: Discharge Diagnosis Discharge Diagnosis (1) Hyperemesis affecting , antepartum: Code(s): O21.0 - Mild hyperemesis gravidarum Status: Acute OB - DS: Summary Hospital Course Hospital Course: this patient is a 31-year-old multiparous female who presented to Labor and delivery with hyperemesis gravidarum. She is severely ill. She was given IV fluids and supportive care. Her labs were checked. She was given antiemetics. Patient has been started on steroids. Methylprednisone. PICC line has been considered. Patient has a history of being severely ill in previous . After a period of observation she improved. She was discharged home. OB Procedures : None OB Procedures Intrapartum: Other OB Procedures: : None Time Spent with Patient Time attestation: Total time spent providing and/or coordinating discharge services: Discharge Plan Discharge Attending physician on discharge: Cierra Dillard Consulting providers: Cierra Dillard Discharging Clinician: Cierra Dillard Anticipated Discharge Date/Time: 07/19/21 23:00 Patient Disposition: Home, Self-Care Activity: as tolerated Diet: as tolerated Stand Alone Forms: General Discharge Information Follow-up/Referrals: Tom Ward MD [Physician] - Discharge Medications: Continued promethazine 25 mg Suppository 25 mg RECTAL Q6H PRN (Reason: Nausea And Vomiting) Qty: 36 3RF ondansetron 4 mg Tablet,Disintegrating 4 mg PO Q8H Qty: 30 3RF Date of admission: 07/17/21 17:43 Primary Care Provider: PHYSICIAN,DOCUMENT CONTROL ASSOCIATE Admitting Provider: Tom Ward Attending physician on admission: Tom Ward Condition: Stable
== END 2021-07-19 23:09 | disposition home or self-care (01) | DRG 833 ==
PROVIDERS: Admitting Provider Obstetrics & Gynecology; Visit Provider Obstetrics & Gynecology
DX: O21.0 Mild hyperemesis gravidarum (principal); Z3A.08 8 weeks gestation of pregnancy
CPT/HCPCS: 36415; 80053; 85027; 87086; 87088; A9270; J1200; J2405; J2550; J3411; J3475; J7030; J7121

== ENCOUNTER 2021-07-30 17:46 | Observation (INO) | payer BC, MEDICAID, SELFPAY ==
--- NOTE | ~2021-07-30 | XR_ITS ---
EXAMINATION: XR chest PICC line Exam Date/Time: 07/31/2021 16:00 CDT CLINICAL HISTORY: check PICC line placement. Comparison: None available. RESULT: Lines, tubes, and devices: Right upper extremity PICC terminating at the distal SVC/cavoatrial junct ion. Lungs and pleura: Clear. Cardiomediastinal silhouette: Normal cardiomediastinal silhouette. Other: No acute osseous or upper abdominal finding. IMPRESSION: Right upper extremity PICC, in good position. No acute cardiopulmonary process. Reviewed, dictated and finalized at location K.
[2021-07-30] MEDS: LACTATED RINGERS 1,000 ML 999 ML IV CONT (18:47)
[2021-07-30] MEDS: ONDANSETRON INJ 4 MG/2 ML VIAL IV PUSH ×3 (18:48→22:58)
[2021-07-30 19:06] LABS: Hematocrit 45.6 % (37.0-47.0); Hemoglobin 15.8 g/dL (12.0-15.0); Mean Corpuscular HGB Conc 34.6 g/dl (32-36); Mean Corpuscular Hemoglobin 30.7 pg (26-34); Mean Corpuscular Volume 88.7 fl (80-100); Mean Platelet Volume 10.8 fl (7.4-10.4); Platelet Count Result 245 k/mm3 (150-375); Red Blood Count 5.14 M/mm3 (4.2-5.4); Red Cell Distribution Width 11.8 % (11.5-14.5); White Blood Count 10.9 K/mm3 (4.5-10.0)
[2021-07-30 19:20] LABS: Alanine Aminotransferase 20 U/L (6-35); Albumin Level 4.3 g/dL (3.5-5.1); Alkaline Phosphatase 63 U/L (38-126); Anion Gap 8 mmol/L (8-16); Aspartate Amino Transferase 24 U/L (14-36); Bilirubin,Total 0.7 mg/dL (0.2-1.3); Blood Urea Nitrogen 10 mg/dL (7-17); Calcium 9.2 mg/dL (8.4-10.2); Carbon Dioxide 28 mmol/L (22-30); Chloride 97 mmol/L (98-107); Estimated Glomerular Filt Rate > 60; Glucose 101 mg/dL (65-110); Potassium 3.2 mmol/L (3.4-5.0); Sodium 133 mmol/L (137-145)
--- NOTE | 2021-07-30 21:08 | PM.IMHP ---
H&P: HPI History of Present Illness Date/Time: 07/30/21 21:08 This patient is a 31-year-old multiparous female at approximately 10 weeks gestation with hyperemesis gravidarum. Patient has been unable to tolerate any food or liquids for 36 hours. She was asked to come to the hospital. She has tried multiple medications including cortical steroids for her treatment. at home her oral medications are not tolerated because of her nausea and vomiting. She becomes dehydrated quickly and problem accelerates. She denies any fevers or chills. She denies any chest pain or shortness of breath. She denies any neurologic symptoms. Chief Complaint: Nausea vomitin Review of Systems Review of Systems: All systems reviewed & are unremarkable except as noted in HPI and below Constitutional: Constitutional: Denies chills, Denies fatigue, Denies fever(s) and Denies weakness Eyes: Eyes: Denies blurry vision, Denies change in vision, Denies loss of peripheral vision, Denies loss of vision, Denies other visual disturbances and Denies eye pain ENT: Denies vertigo, Denies dizziness, Denies hearing loss, Denies mouth pain, Denies nasal obstruction, Denies neck mass and Denies neck pain Cardiovascular: Cardiovascular: Denies chest pain, Denies diaphoresis, Denies syncope, Denies leg edema and Denies dyspnea Respiratory: Respiratory: Denies chest congestion, Denies cough, Denies hemoptysis, Denies dyspnea and Denies wheezing Gastrointestinal: Gastrointestinal: Denies abdominal pain, Denies constipation, Denies diarrhea, Denies nausea and Denies vomiting Genitourinary: Genitourinary: Denies hematuria, Denies change in libido, Denies nocturia, Denies genital lesions, Denies flank pain and Denies urinary urgency Musculoskeletal: Musculoskeletal: Denies abnormal gait, Denies back pain, Denies myalgias, Denies arthralgias, Denies joint swelling, Denies muscle weakness and Denies neck pain Integumentary/Breasts: Skin/Breast: Denies swelling, Denies breast pain, Denies breast mass, Denies dry skin, Denies nipple discharge, Denies unusual bruising and Denies jaundice Neurologic: Denies Neuro-related abnormal movements, Denies Abnormal speech present, Denies abnormal gait, Denies behavioral changes, Denies confusion, Denies vertigo, Denies dizziness, Denies syncope, Denies loss of vision, Denies memory loss, Denies convulsions and Denies weakness Psychiatric: Psychiatric: Denies abnormal sleep pattern, Denies behavioral changes, Denies change in libido, Denies confusion, Denies depression, Denies anhedonia and Denies memory loss Endocrine: Endocrine: Reports no additional endocrine complaints, Denies change in libido and Denies fatigue Hematologic/Lymphatic: Hematologic/Lymphatic: Reports no additional hematologic/lymphatic complaints Allergic/Immunologic: Allergic/Immunologic: Reports no additional allergic/immunologic complaints and Denies wheezing PMFSH Past Medical History Medical History Anxiety Endometriosis Surgical History Surgical History History of appendectomy History of ear surgery X2 Social History Social History Smoking packs per day: 1 Smoking cigarettes per day: 20.0 Years smoked: 8 Smoking pack-years: 8.00 Smoking status: Never smoker Spiritual care concerns: No Meds Home Medications and Allergies Home Medications Medication Instructions Recorded Confirmed Type ondansetron 4 mg PO Q8H #30 tablet 07/12/21 07/17/21 Rx promethazine 25 mg RECTAL Q6H PRN #36 ea 07/12/21 07/17/21 Rx Allergies Allergy/AdvReac Type Severity Reaction Status Date / Time No Known Allergies Allergy Verified 11/18/20 10:54 Exam Const: General: cooperative, healthy appearing, comfortable and no acute distress; No confusion Orientation/consciousness: oriented to pe
[2021-07-30] MEDS: diphenhydrAMINE HCl INJ 50 MG/ML VIAL 25 MG IV PUSH (21:31)
[2021-07-30 21:36] VITALS: BP 103/58; PULSE 82; RESP 16; TEMP 36.6
[2021-07-30] MEDS: DEXTROSE 5%/0.9% SOD CHL 1,000 ML 100 ML IV CONT (21:42)
[2021-07-30] MEDS: POTASSIUM PHOS,M-BASIC-D-BASIC 20 MMOL in SODIUM CHLORIDE 0.9% IV 250 ML 85.56 MMOL IVPB (21:43)
[2021-07-31] VITALS (8 sets, daily range): BP systolic 81–89; BP diastolic 46–56; PULSE 64–73; RESP 14–16; TEMP 36.1–36.5; BMI 16.8
[2021-07-31] MEDS: PROMETHAZINE HCL 25 MG/ML AMPUL 12.5 MG IV PUSH ×6 (00:45→20:59)
[2021-07-31] MEDS: POTASSIUM PHOS,M-BASIC-D-BASIC 20 MMOL in SODIUM CHLORIDE 0.9% IV 250 ML 85.56 MMOL IVPB (01:28)
[2021-07-31] MEDS: ONDANSETRON INJ 4 MG/2 ML VIAL IV PUSH ×6 (03:01→23:03)
--- NOTE | 2021-07-31 09:03 | PM.IMHP ---
H&P: HPI History of Present Illness Date/Time: 07/31/21 09:03 pt admitted for dehydration in , hyperemesis gravidarum. pt is currently getting phenergan and zofran, and was prescribed a steroid taper by Dr. Ward in office. pt currently resting and was able to sleep over night after receiving benedryl Chief Complaint: vomiting Review of Systems Review of Systems: All systems reviewed & are unremarkable except as noted in HPI and below PMFSH Past Medical History Medical History Anxiety Endometriosis Surgical History Surgical History History of appendectomy History of ear surgery X2 Social History Social History Smoking packs per day: 1 Smoking cigarettes per day: 20.0 Years smoked: 8 Smoking pack-years: 8.00 Smoking status: Never smoker Spiritual care concerns: No Meds Home Medications and Allergies Home Medications Medication Instructions Recorded Confirmed Type ondansetron 4 mg PO Q8H #30 tablet 07/12/21 07/17/21 Rx promethazine 25 mg RECTAL Q6H PRN #36 ea 07/12/21 07/17/21 Rx Allergies Allergy/AdvReac Type Severity Reaction Status Date / Time No Known Allergies Allergy Verified 11/18/20 10:54 Vital Signs Vital Signs - 24 hr 07/30/21 21:36 07/31/21 04:50 07/31/21 04:51 Temperature 36.6 C 36.4 C L Pulse Rate 82 64 65 Respiratory Rate 16 16 Blood Pressure 103/58 L 81/51 L 07/31/21 04:52 07/31/21 07:04 07/31/21 07:16 Temperature 36.1 C L Pulse Rate 64 70 Respiratory Rate 15 Blood Pressure 86/53 L 84/46 L Exam Const: General: cooperative, healthy appearing and comfortable H&P: Results Labs Labs: Short CBC 07/30/21 Range/Units 18:53 WBC 10.9 H (4.5-10.0) K/mm3 Hgb 15.8 H (12.0-15.0) g/dL Hct 45.6 (37.0-47.0) % Plt Count 245 (150-375) k/mm3 BMP 07/30/21 18:53 Sodium 133 L Potassium 3.2 L Chloride 97 L Carbon Dioxide 28 BUN 10 Creatinine 0.50 L Glucose 101 Calcium 9.2 Liver Function 07/30/21 Range/Units 18:53 Total Bilirubin 0.7 (0.2-1.3) mg/dL AST 24 (14-36) U/L ALT 20 (6-35) U/L Alkaline Phosphatase 63 (38-126) U/L Albumin 4.3 (3.5-5.1) g/dL Assessment and Plan Additional Plan 1.hyperemesis gravidum continue IV hydration continue IV antiemetics and oral prednisone plan for PICC line today, care coordination scheduled
--- NOTE | 2021-07-31 09:08 | PM.OBTRLD ---
OB - Triage/Final Diagnosis Visit Information Date of evaluation: 07/30/21 Reason for evaluation: other (hyperemesis) Comments/Additional reasons for admission: I have assessed the risk for this patient, Monique Gunter, and determined that she would benefit from observation care. Evaluation Laboratory results: Laboratory Tests 07/30/21 07/30/21 18:53 18:53 WBC 10.9 H RBC 5.14 Hgb 15.8 H Hct 45.6 MCV 88.7 MCH 30.7 MCHC 34.6 RDW 11.8 Plt Count 245 MPV 10.8 H Sodium 133 L Potassium 3.2 L Chloride 97 L Carbon Dioxide 28 Anion Gap 8 BUN 10 Creatinine 0.50 L Estim Creat Clear Calc Not Reportable Estimated GFR > 60 Glucose 101 Calcium 9.2 Total Bilirubin 0.7 AST 24 ALT 20 Alkaline Phosphatase 63 Total Protein 7.0 Albumin 4.3 Vital signs: Vital Signs - 24 hr 07/30/21 21:36 07/31/21 04:50 07/31/21 04:51 Temperature 36.6 C 36.4 C L Pulse Rate 82 64 65 Respiratory Rate 16 16 Blood Pressure 103/58 L 81/51 L 07/31/21 04:52 07/31/21 07:04 07/31/21 07:16 Temperature 36.1 C L Pulse Rate 64 70 Respiratory Rate 15 Blood Pressure 86/53 L 84/46 L
[2021-07-31] MEDS: DEXTROSE 5%/0.9% SOD CHL 1,000 ML 100 ML IV CONT (14:03)
--- NOTE | 2021-07-31 14:36 | PC.NURSE ---
5948--Phone call to supervisor fish processing re: PICC line placement today. States he will notify [facility] for placement.
--- NOTE | 2021-07-31 14:38 | PC.NURSE ---
1296--Phone call received from pressing department supervisor stating that [facility] will be her in approx. 1 hr. for PICC line placement.
--- NOTE | 2021-07-31 15:27 | PC.NURSE ---
1527--Neil from [place] at to place PICC line at this time.
[2021-07-31] MEDS: predniSONE 20 MG TABLET PO (17:01)
--- NOTE | 2021-07-31 18:16 | PC.NURSE ---
1540--PICC line placed in R. upper arm per Neil from [employer].
[2021-07-31] MEDS: DEXTROSE 5%/0.9% SOD CHL 1,000 ML 150 ML IV CONT (23:03)
[2021-07-31] MEDS: diphenhydrAMINE HCl INJ 50 MG/ML VIAL 25 MG IV PUSH (23:03)
[2021-08-01] MEDS: PROMETHAZINE HCL 25 MG/ML AMPUL 12.5 MG IV PUSH ×6 (01:02→21:21)
[2021-08-01] MEDS: ONDANSETRON INJ 4 MG/2 ML VIAL IV PUSH ×6 (03:01→23:04)
[2021-08-01] MEDS: DEXTROSE 5%/0.9% SOD CHL 1,000 ML 150 ML IV CONT ×3 (04:55→19:59)
[2021-08-01 05:09] VITALS: BMI 16.8
--- NOTE | 2021-08-01 07:52 | PM.OBPNVD ---
OB - PN: Subj Subjective Date/time seen: 08/01/21 07:52 Patient is stable. Vomiting has resolved. She has persistent nausea. It is milder than on admission. She denies any fevers, chills, diarrhea. OB - PN: Obj Data Labs CBC & Chem 7: 07/30/21 18:53 07/30/21 18:53 Imaging Radiologist's impression: Impressions Chest X-Ray 07/31/21 16:31 IMPRESSION: Right upper extremity PICC, in good position. No acute cardiopulmonary process. OB - PN A/P Assessment and Plan (1) Hyperemesis affecting , antepartum: Code(s): O21.0 - Mild hyperemesis gravidarum Status: Acute Assessment and Plan: patient is a 31-year-old multiparous female at 10 weeks gestation with hyperemesis. She had a PICC line placed. We are going to arrange home health. She is comfortable sleeping at this time. Ready for discharge. Time Spent With Patient Time: Total time spent is greater than 50% in coordination of care (as documented) at patient's floor/unit and/or counseling patient: Exam Const: General: comfortable, no acute distress and alert Resp: Effort & Inspection: normal respiratory effort Auscultation: no crackles, no rales and no rhonchi Cardio: Rate: regular rate Heart sounds: no click, no murmurs and no rubs GI: Inspection: non-distended GI Palp: No Tenderness to palpation present (GI) Auscultation: normal bowel sounds Other: Incision - CDI Extrem: General: normal to inspection, no pedal edema and no calf tenderness
[2021-08-01 09:05] VITALS: BP 87/53; PULSE 70; RESP 14; TEMP 36.3
--- NOTE | 2021-08-01 09:36 | PC.NURSE ---
0900--Pt reports feeling much better.VSS. Reg diet ordered. Discussed plan of care with Home Health.
--- NOTE | 2021-08-01 09:38 | PC.NURSE ---
5187--Discussed plan with Kristina at Dr. Ward's office. She will put a referral in for Home Health [facility] Infusion center to order meds. Will call us back when she has update.
--- NOTE | 2021-08-01 09:40 | PC.NURSE ---
0745--Dr. Ward at bedside. Plan of care discussed.
[2021-08-01] MEDS: FAMOTIDINE 20 MG/2 ML VIAL IV PUSH ×2 (10:42→23:04)
[2021-08-01] MEDS: predniSONE 10 MG TABLET PO (17:23)
--- NOTE | 2021-08-01 18:31 | PC.NURSE ---
1545--Care Coordination reported that the IV infusion company will be ready to assume care of PICC line as soon as the medications are determined by Dr. Ward.Updated pt on this information.
--- NOTE | 2021-08-01 18:44 | PC.NURSE ---
1745--Pt feeling hungry and ordering food.
--- NOTE | 2021-08-01 18:45 | PC.NURSE ---
1830--Pt reports that she ate most of her sandwich and denies nausea.
[2021-08-01 19:00] VITALS: RESP 20; TEMP 36.6
--- NOTE | 2021-08-01 19:00 | PC.NURSE ---
Patient states that nausea is better and under control. Patient is happy she could eat and has a return in appetite.
[2021-08-01 19:09] VITALS: BP 99/61; PULSE 89
[2021-08-01] MEDS: diphenhydrAMINE HCl INJ 50 MG/ML VIAL 25 MG IV PUSH (21:24)
--- NOTE | 2021-08-02 01:00 | PC.NURSE ---
Sleeping offers no c/o.
[2021-08-02] MEDS: PROMETHAZINE HCL 25 MG/ML AMPUL 12.5 MG IV PUSH ×4 (01:02→12:59)
[2021-08-02] MEDS: ONDANSETRON INJ 4 MG/2 ML VIAL IV PUSH ×3 (03:21→11:32)
[2021-08-02] MEDS: DEXTROSE 5%/0.9% SOD CHL 1,000 ML 150 ML IV CONT ×2 (03:21→10:44)
[2021-08-02 09:03] VITALS: PULSE 79; TEMP 36.9
[2021-08-02 09:04] VITALS: BP 90/48; PULSE 79
[2021-08-02] MEDS: FAMOTIDINE 20 MG/2 ML VIAL IV PUSH (09:13)
--- NOTE | 2021-08-02 09:24 | P.PNOB_ITS ---
OB - PN: Subj Subjective Date/time seen: 08/02/21 09:24 much improved, tolerating p.o., minimal nausea. OB - PN: Obj Data Labs CBC & Chem 7: 07/30/21 18:53 07/30/21 18:53 OB - PN A/P Assessment and Plan (1) Hyperemesis affecting , antepartum: Code(s): O21.0 - Mild hyperemesis gravidarum Status: Acute Assessment and Plan: Home health is being arranged, tolerating p.o., minimal nausea, Feeling well. To discharge today. Time Spent With Patient Time: Total time spent is greater than 50% in coordination of care (as documented) at patient's floor/unit and/or counseling patient: Exam Const: General: comfortable, no acute distress and alert Resp: Effort & Inspection: normal respiratory effort Auscultation: no cr ackles, no rales and no rhonchi Cardio: Rate: regular rate Heart sounds: no click, no murmurs and no rubs GI: Inspection: non-distended GI Palp: No Tenderness to palpation present (GI) Auscultation: normal bowel sounds Other: Incision - CDI Extrem: General: normal to inspection, no pedal edema and no calf tenderness
--- NOTE | 2021-08-02 09:26 | P.DS_ITS ---
DS: Admitting Diagnosis Discharge Date August 02, 2021 Admitting Diagnosis Hyperemesis gravidarum DS: Discharge Diagnosis Discharge Diagnosis (1) Hyperemesis affecting , antepartum: Code(s): O21.0 - Mild hyperemesis gravidarum Status: Acute DS: Summary Hospital Course Hospital Course: this patient is a 31-year-old multiparous female with hyperemesis at 10 weeks gestation. She was severely ill upon admission. Supportive therapy that included IV fluids, antiemetics, continuing steroids was applied. Patient improved over the course of several days. She will be discharged home with home health. A PICC line was placed on during her stay here. Time Spent with Patient Time attestation: Total time spent providing and/or coordinating discharge services: Discharge Plan Discharge Discharging Clinician: Tom Ward Patient Disposition: Home, Self-Care Activity: as tolerated Diet: as tolerated Patient Instructions: Antibiotic Form Stand Alone Forms: General Discharge Information Follow-up/Referrals: Tom Ward MD [Physician] - Discharge Medications: Continued promethazine 25 mg Suppository 25 mg RECTAL Q6H PRN (Reason: Nausea And Vomiting) Qty: 36 RF: 3 ondansetron 4 mg Tablet,Disintegrating 4 mg PO Q8H Qty: 30 RF: 3 Date of admission: 07/30/21 17:46 Primary Care Provider: PHYSICIAN,[employer]IC[employer]ED [employer] Admitting Provider: Tom Ward Attending physician on admission: Tom Ward Condition: Stable
[2021-08-02] MEDS: DOCUSATE SODIUM 100 MG CAPSULE PO (11:55)
[2021-08-02] MEDS: SCOPOLAMINE 1.5 MG PATCH TRANSDERM (11:55)
--- NOTE | 2021-08-02 14:50 | PC.NURSE ---
Home health nurse at bedside educated patient on home care.
--- NOTE | 2021-08-02 15:05 | PC.NURSE ---
Declined IV zofran. Pt was setting up at home zofran pump with home health nurse.
[2021-08-02 15:29] VITALS: BP 103/68; PULSE 85
--- NOTE | 2021-08-02 15:53 | PCCCNOTE ---
Was notified for PICC line placement and IV Zofran at discharge. Spoke to pt.'s mother at her bedside to inform of process. Contacted [facility] for referral. [facility] RN present at hospital today for teaching. They've contacted Dr. Ward for orders. Had made referral to [facility] home health but they are unable to accept due to census. [facility] states ability to meet nursing needs in the home so no further home health referred. Have spoke to pt.'s RN and pt. discharge home today following all teaching and arrangement of supplies per [facility] with pt. and her family.
== END 2021-08-02 15:33 | disposition home or self-care (01) ==
PROVIDERS: Admitting Provider Obstetrics & Gynecology; Visit Provider Obstetrics & Gynecology
DX: O21.1 Hyperemesis gravidarum with metabolic disturbance (principal); Z3A.10 10 weeks gestation of pregnancy; Z90.49 Acquired absence of other specified parts of digestive tract
CPT/HCPCS: 36415; 36569; 80053; 85027; 96361; 96365; 96366; 96375; 96376; A9270; C1751; G0378; G0379; J1200; J2405; J2550; J7042; J7050; J7120; J7512

== ENCOUNTER 2022-01-05 14:25 | Outpatient (RCR) | payer BC, MEDICAID, SELFPAY ==
[2022-01-04] MEDS: BETAMETHASONE SOD PHOS/ACETATE 30 MG/5 ML VIAL 12 MG IM (17:53)
[2022-01-05] MEDS: BETAMETHASONE SOD PHOS/ACETATE 30 MG/5 ML VIAL 12 MG IM (14:31)
== END 2022-04-04 23:59 | disposition home or self-care (01) ==
LOC: ANHOBOP 14:25
PROVIDERS: Visit Provider Obstetrics & Gynecology
DX: O36.8990 Maternal care for other specified fetal problems, unspecified trimester, not applicable or unspecified (principal); Z3A.00 Weeks of gestation of pregnancy not specified
CPT/HCPCS: 96372; J0702

== ENCOUNTER 2022-01-06 20:27 | Observation (INO) | payer BC, MEDICAID, SELFPAY ==
[2022-01-06] VITALS (32 sets, daily range): BP systolic 88–103; BP diastolic 47–63; PULSE 82–110; O2SAT 94–99; BMI 23.1
[2022-01-06 21:08] LABS: Add Urine Microscopic? YES; Appearance Urine Cloudy (Clear); Bacteria Urine Trace /hpf; Bilirubin Urine Negative (Negative); Blood Urine 1+ (Negative); Color Urine Yellow (Yellow); Glucose Urine UA Negative (Negative); Ketones Urine Trace mg/dL (Negative); Leukocyte Esterase Ur Trace LEU/UL (Negative); Mucus Urine Rare /lpf; Nitrate Urine Negative (Negative); Protein Urine Negative (Negative); Specific Grav Ur 1.018 (1.001-1.035); Squamous Epithelial Cell Urine Moderate /hpf (Few); Urobilinogen Urine Negative mg/dL (<2.0); WBC Urine 0-3 /hpf
[2022-01-06] MEDS: TERBUTALINE SULFATE 1 MG/ML VIAL 0.25 MG SUB-Q (22:06)
--- NOTE | 2022-01-06 23:26 | OBADM ---
This patient, Monique Gunter, admitted to the OB room OB Post 117 for observation. Patient/family oriented to hospital policies and general routines including ID bracelet, bed and alarms, visiting hours, pain management, procedures, bathroom and other care routines, personal items, smoking policy, room service/diet, and visiting hours. Patient/Family are encouraged to report perceived risks to care and to ask questions if they do not understand what they are told or what they should do.
--- NOTE | 2022-01-16 07:46 | P.PNOB_ITS ---
OB - Triage/Final Diagnosis Visit Information Comments/Additional reasons for admission: I have assessed the risk for this patient, Monique Gunter, and determined that she would benefit from observation care. Evaluation Laboratory results: Laboratory Tests 01/06/22 20:49 Urine Color Yellow Urine Appearance Cloudy H Urine pH 6.0 Ur Specific [place] 1.018 Urine Protein Negative Urine Glucose (UA) Negative Urine Ketones Trace Ur Blood (Man) 1+ H Urine Nitrate Negative Urine Bilirubin Negative Urine Urobilinogen Negative Leukocyte Esterase Rfl Trace H Urine RBC 3-5 H Urine WBC 0-3 Ur Squamous Epith Cells Moderate H Urine Bacteria Trace Urine Mucus Rare Final Diagnosis (1) contractions: Code(s): O47.00 - False labor before 37 completed weeks of gestation, unspecified trimester Status: Acute
== END 2022-01-06 23:45 | disposition home or self-care (01) ==
PROVIDERS: Admitting Provider Obstetrics & Gynecology; Visit Provider Obstetrics & Gynecology
DX: O47.03 False labor before 37 completed weeks of gestation, third trimester (principal); O21.0 Mild hyperemesis gravidarum; Z3A.33 33 weeks gestation of pregnancy
CPT/HCPCS: 81001; 96372; G0378; G0379; J3105

== ENCOUNTER 2022-02-05 15:08 | Inpatient (IN) | payer BC, MEDICAID, SELFPAY ==
[2022-02-05] VITALS (12 sets, daily range): BP systolic 100–124; BP diastolic 64–81; PULSE 60–149; RESP 16; TEMP 36.7–37; O2SAT 98–100; BMI 23.1
--- OUTSIDE RECORDS SUMMARY | 2022-02-05 15:35 | XMS_ITS | Encounter Summary ---
:1990 Author Reason for Visit OB visit Assessment and Plan Assessment Note Patient is ___weeks . Discussed plan. 1. Routine care Discussion Note: None recorded.Patient educational handouts: No information available. Plan of Care Reminders Provider Appointments Ob Routine 02/06/2022 2:45PM Alex Ward MD ? Induction 02/15/2022 6:00AM Alex Ward MD Lab None recorded. ? ? Referral None recorded. ? ? Procedures None recorded. ? ? Surgeries None recorded. ? ? Imaging None recorded. ? ? Medications Name Start Date ? ? amoxicillin 875 mg tablet ? TAKE 1 TABLET BY MOUTH EVERY 12 HOURS lactated Ringers intravenous solution ? ondansetron 4 mg disintegrating tablet ? Place 1 tablet 3 times a day by translingual route as needed for 30 days. ondansetron HCl 8 mg tablet ? TAKE 1 TABLET BY MOUTH TWICE A DAY NEEDED pantoprazole 40 mg tablet,delayed release ? TAKE 1 TABLET BY MOUTH EVERY DAY prednisone 10 mg tablet ? TAKE 4 TABLETS DAY 1. TAKE 2 TABLETS DA YS 2-4. TAKE 1 TABLET DAYS 5-7. TAKE 1/2 TABLET DAYS 8-14. promethazine 12.5 mg tablet ? TAKE 1 TABLET BY MOUTH EVERY 4 TO 6 HOURS NEEDED promethazine 25 mg rectal suppository ? UNWRAP AND INSERT 1 SUPPOSITORY INTO RE CTUM EVERY 6 HOURS NEEDED FOR NAUSEA AND VOMITING Medications Administered None recorded. Vitals Height Weight BMI Blood Pressure 5 ft 6 in 145 lbs 23.4 kg/m2 96/56 mm[Hg] Results Lab Results None recorded. Allergies Code Code System Name Reaction Severity Onset
--- OUTSIDE RECORDS SUMMARY | 2022-02-05 15:35 | XMS_ITS ---
:1990 Author Care Team Providers Name Role Phone SylviaDevinAlexmichele Romero Primary Care Provider Unavailable Allergies Code Code System Name Reaction Severity Status Onset NKDA ? Medications Name Status Start Date Stop Date ? ? amoxicillin 500 mg capsule Completed ? 11/17 TAKE 1 CAPSULE BY MOUTH EVERY 12 HOURS FOR 10 DAYS amoxicillin 875 mg tablet Active ? Not av ailable TAKE 1 TABLET BY MOUTH EVERY 12 HOURS 04/07 (28) 1 mg-20 mcg (21)/75 mg (7) tablet Completed 11/14/2017 01/01/2019 take 1 tablet by oral route every day lactated Ringers intravenous solution Active ? Not available Millipred 5 mg tablet Completed 11/19/2015 11/19/2015 take as per wean schedule given ondansetron 4 mg disintegrating tablet Active ? Not available Place 1 tablet 3 times a day by translingual route as needed fo r 30 days. ondansetron HCl 8 mg tablet Active ? Not available TAKE 1 TABLET BY MOUTH TWICE A DAY NEEDED pantoprazole 40 mg tablet,delayed release Active ? Not available TAKE 1 TABLET BY MOUTH EVERY DAY Phenergan 50 mg rectal suppository Completed 11/19/2015 11/19/2015 insert 1 suppository by rectal route 3 times every day prednisone 10 mg tablet Active ? Not avai lable TAKE 4 TABLETS DAY 1. TAKE 2 TABLETS DA YS 2-4. TAKE 1 TABLET DAYS 5-7. TAKE 1/2 TABLET DAYS 8-14. promethazine 12.5 mg tablet Active ? Not available promethazine 25 mg rectal suppository Active ? Not available UNWRAP AND INSERT 1 SUPPOSITORY INTO RE CTUM EVERY 6 HOURS NEEDED FOR NAUSEA AND VOMITING promethazine 25 mg tablet Completed 01/17/20162016
--- OUTSIDE RECORDS SUMMARY | 2022-02-05 15:35 | XMS_ITS | Encounter Summary ---
[...] BMI Blood Pressure 5 ft 6 in 140 lbs 22.6 kg/m2 94/59 mm[Hg] Results Lab Results None recorded. Allergies Code Code System Name Reaction Severity Onset
--- OUTSIDE RECORDS SUMMARY | 2022-02-05 15:35 | XMS_ITS | Encounter Summary ---
[...] BMI Blood Pressure 5 ft 6 in 142 lbs 22.9 kg/m2 104/66 mm[Hg] Results Lab Results None recorded. Allergies Code Code System Name Reaction Severity Onset
--- OUTSIDE RECORDS SUMMARY | 2022-02-05 15:35 | XMS_ITS | Encounter Summary ---
:1990 Author Reason for Visit OB visit Assessment and Plan Assessment Note Patient is ___weeks . Discussed plan. 1. Gastroesophageal reflux disease ? Protonix 40 mg tablet,delayed release 2. Routine care Discussion Note: None recorded.Patient educational [...] BMI Blood Pressure 5 ft 6 in 128 lbs 20.7 kg/m2 96/63 mm[Hg] Results Lab Results
--- OUTSIDE RECORDS SUMMARY | 2022-02-05 15:35 | XMS_ITS | Encounter Summary ---
:1990 Author Reason for Visit OB visit Assessment and Plan Assessment Note Patient is ___weeks . Discussed plan. 1. Routine care 2. Upper respiratory infection ? amoxicillin 875 mg tablet Discussion Note: None recorded.Patient educational handouts: No [...] ft 6 in 140 lbs 22.6 kg/m2 103/68 mm[Hg] Results Lab Results
--- OUTSIDE RECORDS SUMMARY | 2022-02-05 15:35 | XMS_ITS | Encounter Summary ---
:1990 Author Reason for Visit None recorded. Assessment and Plan 1. Uterine size for dates discrepancy ? US, obstetric, follow-up Discussion Note: None recorded.Patient educational handouts: No information available. Plan of Care Reminders Provider Appointments Ob Routine 02/06/2022 Alex thayer MD 2:45PM ? Induction 02/15/2022 Alex thayer MD 6:00AM Lab None recorded. ? ? Referral None recorded. ? ? Procedures None recorded. ? ? Surgeries None recorded. ? ? Imaging US, Obstetric, Follow-up 12/08/2021 Adeline duncan Medications Name Start Date ? ? amoxicillin [...] AND VOMITING Medications Administered None recorded. Vitals None recorded. Results Lab Results None recorded. Allergies Code Code System Name Reaction Severity Onset NKDA ? ? ?
--- OUTSIDE RECORDS SUMMARY | 2022-02-05 15:35 | XMS_ITS | Encounter Summary ---
:1990 Author Reason for Visit None recorded. Assessment and Plan 1. Threatened premature labor - not del ivered ? US, obstetric, follow-up Discussion Note: None recorded.Patient educational handouts: No information available. Plan of Care Reminders Provider Appointments Ob Routine 02/06/2022 Alex thayer MD 2:45PM ? Induction 02/15/2022 Alex thayer MD 6:00AM Lab None recorded. ? ? Referral None recorded. ? ? Procedures None recorded. ? ? Surgeries None recorded. ? ? Imaging US, Obstetric, Follow-up 01/18/2022 Adeline duncan Medications Name Start Date ? [...]
[2022-02-05 15:58] LABS: Basophils Absolute Auto 0.1 K/mm3 (0.0-0.1); Basophils Percent Auto 0.3 % (0.2-1.2); Eosinophils Absolute Auto 0.1 K/mm3 (0-0.3); Eosinophils Percent Auto 0.4 % (0-4.4); Hemoglobin 12.4 g/dL (12.0-15.0); Immature Granulocyte Percent A 0.6 % (0-0.5); Lymphocytes Absolute Auto 2.39 K/mm3 (0.9-3.2); Lymphocytes Percent Auto 13.3 % (18.3-44.2); Mean Corpuscular HGB Conc 34.4 g/dl (32-36); Mean Corpuscular Hemoglobin 32.7 pg (26-34); Mean Platelet Volume 9.4 fl (7.4-10.4); Monocytes Absolute Auto 0.9 K/mm3 (0.1-0.6); Monocytes Percent Auto 5.2 % (2.6-8.5); Neutrophils Absolute Auto 14.5 K/mm3 (1.3-6.7); Neutrophils Percent Auto 80.2 % (45.5-73.1); Platelet Count Result 214 k/mm3 (150-375); Red Blood Count 3.79 M/mm3 (4.2-5.4); Red Cell Distribution Width 12.6 % (11.5-14.5)
[2022-02-05] MEDS: OXYTOCIN 30 UNITS/NS 500 ML 30 UNITS/500 ML BAG 999 UNITS IV CONT (16:17)
--- NOTE | 2022-02-05 16:54 | P.PCNOB_ITS ---
OB - Delivery Note Procedure Delivery date: 02/05/22 Procedure: Events: Other (severe hyperemesis) Delivery monitor: External FHT and External Uterine Route of delivery: Episiotomy description: None Laceration Description: None Specimen: No Quantitative Blood Loss (ml): 150 Anesthesia type: None [place] Date of : 02/05/22 Time of : 16:14 Weeks of gestation at delivery: 37 Weight (pounds): 6 Weight (ounces): 8 score one minute: 8 score five minutes: 9
[2022-02-05] MEDS: IBUPROFEN 600 MG TABLET PO ×2 (17:21→23:54)
[2022-02-05] MEDS: BENZOCAINE 20% AER SPR (*SP) 56 GM CAN 1 SPRAY TOPICAL (18:41)
[2022-02-05] MEDS: WITCH HAZEL 40 PADS 1 PAD TOPICAL (18:41)
--- NOTE | 2022-02-05 18:53 | PC.NURSE ---
Patient transferred to post room #282 via w/c. Support person, Russ, maría. Oriented to unit, room, information board, rooming in, admission packet and security measures. Patient verbalizes understanding.
[2022-02-06 04:55] VITALS: BP 87/54; PULSE 60; RESP 16; TEMP 36.7; O2SAT 99
[2022-02-06 06:19] LABS: Hemoglobin 11.4 g/dL (12.0-15.0)
[2022-02-06 06:43] LABS: Rapid Plasma Reagin Non-Reactive (NonReactive)
[2022-02-06 07:55] VITALS: BP 101/69; PULSE 58; RESP 16; TEMP 37.3; O2SAT 100
[2022-02-06] MEDS: MULTIVIT/MIN/PREN/FOL AC/IRON TABLET 1 TAB PO (08:21)
[2022-02-06] MEDS: IBUPROFEN 600 MG TABLET PO ×2 (08:21→15:34)
[2022-02-06] MEDS: DOCUSATE SODIUM 100 MG CAPSULE PO (08:21)
--- NOTE | 2022-02-06 08:31 | PM.OBPNVD ---
OB - PN: Subj Subjective Date/time seen: 02/06/22 08:31 Patient comments: no complaints, pain well controlled, incisional pain, tolerating diet and flatus present OB - PN: Obj Data Labs CBC & Chem 7: 02/06/22 05:01 Labs: Laboratory Results - last 24 hr 02/05/22 02/05/22 02/05/22 15:48 15:48 15:48 WBC 18.0 H RBC 3.79 L Hgb 12.4 D Hct 36.0 L MCV 95.0 MCH 32.7 MCHC 34.4 RDW 12.6 Plt Count 214 MPV 9.4 Immature Gran % (Auto) 0.6 H Neut % (Auto) 80.2 H Lymph % (Auto) 13.3 L [place] % (Auto) 5.2 Eos % (Auto) 0.4 Baso % (Auto) 0.3 Lymph # (Auto) 2.39 [place] # (Auto) 0.9 H Eos # (Auto) 0.1 Baso # (Auto) 0.1 Abs Immat Gran (auto) 0.10 H Absolute Neuts (auto) 14.5 H Absolute Nucleated RBC 0.0 Nucleated RBC % 0.0 RPR Non-reactive Blood Type A Positive Antibody Screen Negative 02/06/22 05:01 WBC RBC Hgb 11.4 L Hct 34.0 L MCV MCH MCHC RDW Plt Count MPV Immature Gran % (Auto) Neut % (Auto) Lymph % (Auto) [place] % (Auto) Eos % (Auto) Baso % (Auto) Lymph # (Auto) [place] # (Auto) Eos # (Auto) Baso # (Auto) Abs Immat Gran (auto) Absolute Neuts (auto) Absolute Nucleated RBC Nucleated RBC % RPR Blood Type Antibody Screen OB - PN A/P Plan day: 1 Plan: routine care Comments: No problems, routine care Time Spent With Patient Time: Total time spent is greater than 50% in coordination of care (as documented) at patient's floor/unit and/or counseling patient: Exam Const: General: comfortable, no acute distress and alert Resp: Effort & Inspection: normal respiratory effort Auscultation: no crackles, no rales and no rhonchi Cardio: Rate: regular rate Heart sounds: no click, no murmurs and no rubs GI: Inspection: non-distended GI Palp: No Tenderness to palpation present (GI) Auscultation: normal bowel sounds Other: Incision - CDI Extrem: General: normal to inspection, no pedal edema and no calf tenderness
--- NOTE | 2022-02-06 08:44 | P.DS_ITS ---
DS: Admitting Diagnosis Discharge Date 02/06/22 Admitting Diagnosis Labor DS: Discharge Diagnosis Discharge Diagnosis (1) Active labor: Status: Acute OB - DS: Summary OB Procedures : None OB Procedures Intrapartum: Spontaneous Vag Delivery OB Procedures: : None Time Spent with Patient Time attestation: Total time spent providing and/or coordinating discharge services: DS: Data Data Completed and Pending Labs on day of discharge: Labs from last 24 hours 02/06/22 02/05/22 02/05/22 05:01 15:48 15:48 WBC RBC Hgb 11.4 L Hct 34.0 L MCV MCH MCHC RDW Plt Count MPV Immature Gran % (Auto) Neut % (Auto) Lymph % (Auto) [place] % (Auto) Eos % (Auto) Baso % (Auto) Lymph # (Auto) [place] # (Auto) Eos # (Auto) Baso # (Auto) Abs Immat Gran (auto) Absolute Neuts (auto) Absolute Nucleated RBC Nucleated RBC % RPR Non-reactive Blood Type A Positive Antibody Screen Negative 02/05/22 15:48 WBC 18.0 H RBC 3.79 L Hgb 12.4 D Hct 36.0 L MCV 95.0 MCH 32.7 MCHC 34.4 RDW 12.6 Plt Count 214 MPV 9.4 Immature Gran % (Auto) 0.6 H Neut % (Auto) 80.2 H Lymph % (Auto) 13.3 L [place] % (Auto) 5.2 Eos % (Auto) 0.4 Baso % (Auto) 0.3 Lymph # (Auto) 2.39 [place] # (Auto) 0.9 H Eos # (Auto) 0.1 Baso # (Auto) 0.1 Abs Immat Gran (auto) 0.10 H Absolute Neuts (auto) 14.5 H Absolute Nucleated RBC 0.0 Nucleated RBC % 0.0 RPR Blood Type Antibody Screen Discharge Plan Discharge Discharging Clinician: Tom Ward Patient Disposition: Home, Self-Care Activity: pelvic rest Diet: regular Patient Instructions: Antibiotic Form Stand Alone Forms: General Discharge Information Follow-up/Referrals: Tom Ward MD [Physician] - Discharge Medications: Continued ondansetron 4 mg Tablet,Disintegrating 4 mg PO Q8H Qty: 30 3RF Date of admission: 02/05/22 15:08 Primary Care Provider: PHYSICIAN,SENIOR GENETIC COUNSELOR Admitting Provider: Tom Ward Attending physician on admission: Tom Ward Condition: Stable
--- NOTE | 2022-02-06 11:45 | PC.NURSE ---
Patient viewed the discharge video Mother & Baby Care, The First Two Weeks online. Patient was given the opportunity and encouraged to ask questions. Patient verbalized understanding of information shared and has been given the mother/baby guide for home reference.
[2022-02-06 12:05] VITALS: BP 96/65; PULSE 62; RESP 16; TEMP 37.5; O2SAT 100
[2022-02-06 15:15] VITALS: BP 110/68; PULSE 64; RESP 16; TEMP 36.7; O2SAT 100
[2022-02-08 10:52] VITALS: BP 107/73; PULSE 90; RESP 16; TEMP 37.1; O2SAT 98
== END 2022-02-06 17:52 | disposition home or self-care (01) | DRG 807 ==
LOC: ANHLDR 15:42 → ANHOB2 18:59
PROVIDERS: Admitting Provider Obstetrics & Gynecology; Visit Provider Obstetrics & Gynecology
DX: O76 Abnormality in fetal heart rate and rhythm complicating labor and delivery (principal); Z37.0 Single live birth; O69.81X0 Labor and delivery complicated by cord around neck, without compression, not applicable or unspecified; Z3A.37 37 weeks gestation of pregnancy; O21.1 Hyperemesis gravidarum with metabolic disturbance
CPT/HCPCS: 36415; 84112; 85014; 85018; 85025; 86592; 86850; 86900; 86901; A9270; J2590

== ENCOUNTER 2022-07-07 10:53 | Emergency (ER) | payer BC, OTHER, SELFPAY ==
[2022-07-07 11:02] VITALS: BP 102/73; PULSE 57; RESP 16; TEMP 36.3; O2SAT 100
--- NOTE | 2022-07-07 11:08 | ED.GENADULT ---
HPI - General Adult General Chief complaint: Chest Pain Stated complaint: chest pressure/pain;feeling of something in throat Time Seen by Provider: 07/07/22 11:09 Source: patient, RN notes reviewed and old records reviewed Mode of arrival: ambulatory Limitations: no limitations History of Present Illness HPI narrative: 32-year-old female presents to the [facility] with complaints chest pressure. patient complaining of it feels like someone is sitting on my chest. Started about an hour prior to arrival. 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 no radiation of pain. States it feels like it is in her upper chest sternal area. Denied any nausea or vomiting. No radiation of pain. Denies any cardiac history. Onset (ago): hour(s) (1) Treatments prior to arrival: none Related Data Home Medications Medication Instructions Recorded Confirmed No Home Medications 07/07/22 07/07/22 Allergies Allergy/AdvReac Type Severity Reaction Status Date / Time No Known Allergies Allergy Verified 07/07/22 11:20 Review of Systems Review of Systems: All systems reviewed & are unremarkable except as noted in HPI and below Constitutional: Constitutional: Reports no additional constitutional complaints Eyes: Eyes: Reports no additional eye complaints ENT: Reports system reviewed and no additional complaints, except as documented Cardiovascular: Cardiovascular: Reports as per HPI, Reports chest pain, Denies diaphoresis, Denies rapid heart rate, Denies pedal edema, Denies edema, Denies irregular heart rhythm, Denies leg edema, Denies lightheadedness, Denies radiating jaw, neck or arm pain, Denies palpitations, Denies dyspnea and Denies dyspnea on exertion Respiratory: Respiratory: Reports no additional respiratory complaints, Denies chest congestion, Denies cough and Denies dyspnea Gastrointestinal: Gastrointestinal: Reports no additional gastrointestinal complaints, Denies abdominal pain, Denies nausea and Denies vomiting Musculoskeletal: Musculoskeletal: Reports no additional musculoskeletal complaints Integumentary/Breasts: Skin/Breast: Reports system reviewed and no additional complaints, except as docu Neurologic: Reports system reviewed and no additional complaints, except as documented Psychiatric: Psychiatric: Reports no additional psychiatric complaints Allergic/Immunologic: Allergic/Immunologic: Reports no additional allergic/immunologic complaints PMFSH Past Medical History Medical History Anxiety Endometriosis Surgical History Surgical History History of appendectomy History of ear surgery X2 Family History Family History Mother Hypertension Grandparent Hypertension Grandparent Ovarian cancer Social History Social History Smoking packs per day: 1 Smoking cigarettes per day: 20.0 Years smoked: 8 Smoking pack-years: 8.00 Smoking status: Never smoker Second hand tobacco smoke exposure: No Substance use: never Lack of Transportation: No Lack of Food: Never True Current Housing: I Have Housing Concerned About Future Housing: No Difficulty Paying Gas/Electric Bills: No Difficulty Paying for Meds: No Currently Unemployed: No Education: Bachelor's Degree Difficulty w/ Childcare or Family Care: No Living arrangements: with family Spiritual care concerns: No Comments At the time of my signature, I reviewed and agree with the nursing past medical, surgical, social, and family history. There is no relevant family history pertinent to the patient complaint. Exam Const: General: cooperative, healthy appearing, comfortable, no acute distress, well developed, alert and w
--- NOTE | 2022-07-07 11:21 | ECG_ITS ---
Measurements Intervals [place] Rate: 51 P: 2 NV: 151 QRS: 75 QRSD: 93 T: 64 QT: 405 QTc: 373 Interpretive Statements SINUS BRADYCARDIA NO PREVIOUS ECG AVAILABLE FOR COMPARISON Electronically Signed On 07-07-2022 15:36:36 CDT by Olman Albarran M.D.
== END 2022-07-07 11:33 | disposition left against medical advice (07) ==
PROVIDERS: Emergency Provider Nurse Practitioner
DX: R07.89 Other chest pain (principal); N80.9 Endometriosis, unspecified
CPT/HCPCS: 93005; 99213; G0463